=== PATIENT | male | born 1950 | race Two or more races ===

== ENCOUNTER 2020-07-07 11:30 | Outpatient (CLI) | payer MEDICARE, OTHER | END 2020-07-07 23:59 | disposition home or self-care (01) | LOC: MSC 11:30 | PROVIDERS: ATTEND Internal Medicine | DX: E11.22 Type 2 diabetes mellitus with diabetic chronic kidney disease (principal); N18.9 Chronic kidney disease, unspecified; M45.9 Ankylosing spondylitis of unspecified sites in spine; Z98.1 Arthrodesis status; E78.5 Hyperlipidemia, unspecified; R53.1 Weakness; J40 Bronchitis, not specified as acute or chronic; Z86.010 Personal history of colon polyps ==

== ENCOUNTER 2020-07-26 10:15 | Outpatient (CLI) | payer OTHER ==
[2020-07-26 11:52] LABS: ALBUMIN 3.4 g/dL (3.4-5.0); BILIRUBIN,TOTAL 0.3 mg/dL (0.2-1.0); CALCIUM, SERUM 8.8 mg/dL (8.5-10.1); CREATININE 1.9 mg/dL (0.6-1.3); MAGNESIUM 1.7 mg/dL (1.8-2.4); PHOSPHORUS 3.6 mg/dL (2.5-4.9); POTASSIUM 4.7 mmol/L (3.5-5.1); TOTAL PROTEIN, SERUM 6.9 g/dL (6.4-8.2)
== END 2020-07-26 23:59 | disposition home or self-care (01) ==
LOC: MSC 10:15
PROVIDERS: ATTEND Internal Medicine
DX: K63.5 Polyp of colon (principal); J30.9 Allergic rhinitis, unspecified; E11.22 Type 2 diabetes mellitus with diabetic chronic kidney disease; N18.9 Chronic kidney disease, unspecified; Z79.4 Long term (current) use of insulin; Z79.84 Long term (current) use of oral hypoglycemic drugs; M45.9 Ankylosing spondylitis of unspecified sites in spine; Z98.1 Arthrodesis status; E78.5 Hyperlipidemia, unspecified; J40 Bronchitis, not specified as acute or chronic; M81.0 Age-related osteoporosis without current pathological fracture; Z79.899 Other long term (current) drug therapy; Z79.52 Long term (current) use of systemic steroids
CPT/HCPCS: 36415; 80053-TC; 83735-TC; 83970; 84100-TC

== ENCOUNTER 2020-09-27 10:30 | Outpatient (CLI) | payer OTHER | END 2020-09-27 23:59 | disposition home or self-care (01) | LOC: MSC 10:30 | PROVIDERS: ATTEND Internal Medicine | DX: I12.9 Hypertensive chronic kidney disease with stage 1 through stage 4 chronic kidney disease, or unspecified chronic kidney disease (principal); E11.22 Type 2 diabetes mellitus with diabetic chronic kidney disease; N18.9 Chronic kidney disease, unspecified; Z79.84 Long term (current) use of oral hypoglycemic drugs; J30.9 Allergic rhinitis, unspecified; M45.9 Ankylosing spondylitis of unspecified sites in spine; I25.10 Atherosclerotic heart disease of native coronary artery without angina pectoris; E78.5 Hyperlipidemia, unspecified; J40 Bronchitis, not specified as acute or chronic; M81.0 Age-related osteoporosis without current pathological fracture; Z98.890 Other specified postprocedural states; Z79.52 Long term (current) use of systemic steroids; Z79.899 Other long term (current) drug therapy ==

== ENCOUNTER 2020-11-08 11:22 | Outpatient (CLI) | payer OTHER | END 2020-11-08 23:59 | disposition home or self-care (01) | LOC: MSC 11:22 | PROVIDERS: ATTEND Internal Medicine | DX: S70.02XA Contusion of left hip, initial encounter (principal); W19.XXXA Unspecified fall, initial encounter; Y93.9 Activity, unspecified; E11.22 Type 2 diabetes mellitus with diabetic chronic kidney disease; I12.9 Hypertensive chronic kidney disease with stage 1 through stage 4 chronic kidney disease, or unspecified chronic kidney disease; N18.9 Chronic kidney disease, unspecified; Z79.84 Long term (current) use of oral hypoglycemic drugs; M45.9 Ankylosing spondylitis of unspecified sites in spine; I25.10 Atherosclerotic heart disease of native coronary artery without angina pectoris; E78.5 Hyperlipidemia, unspecified; J40 Bronchitis, not specified as acute or chronic; M81.0 Age-related osteoporosis without current pathological fracture; Z79.52 Long term (current) use of systemic steroids; Z79.899 Other long term (current) drug therapy | CPT/HCPCS: 73503; G0463; 73502 ==

== ENCOUNTER 2021-02-08 13:55 | Outpatient (CLI) | payer OTHER | END 2021-02-08 23:59 | disposition home health service (06) | LOC: WOU 13:55 | PROVIDERS: ATTEND Podiatrist Foot & Ankle Surgery | DX: E11.621 Type 2 diabetes mellitus with foot ulcer (principal); L97.512 Non-pressure chronic ulcer of other part of right foot with fat layer exposed; R60.0 Localized edema; I10 Essential (primary) hypertension; M10.9 Gout, unspecified | CPT/HCPCS: 11042 ==

== ENCOUNTER 2021-02-23 10:15 | Outpatient (CLI) | payer OTHER | END 2021-02-23 23:59 | disposition home or self-care (01) | LOC: MSC 10:15 | PROVIDERS: ATTEND Internal Medicine | DX: M25.675 Stiffness of left foot, not elsewhere classified (principal); E11.22 Type 2 diabetes mellitus with diabetic chronic kidney disease; I12.9 Hypertensive chronic kidney disease with stage 1 through stage 4 chronic kidney disease, or unspecified chronic kidney disease; N18.9 Chronic kidney disease, unspecified; Z79.4 Long term (current) use of insulin; M25.552 Pain in left hip; R58 Hemorrhage, not elsewhere classified; R60.0 Localized edema; J30.9 Allergic rhinitis, unspecified; I25.10 Atherosclerotic heart disease of native coronary artery without angina pectoris; E78.5 Hyperlipidemia, unspecified; J40 Bronchitis, not specified as acute or chronic; M81.0 Age-related osteoporosis without current pathological fracture; M45.9 Ankylosing spondylitis of unspecified sites in spine; S91.301D Unspecified open wound, right foot, subsequent encounter; Z79.82 Long term (current) use of aspirin; Z79.52 Long term (current) use of systemic steroids; Z79.899 Other long term (current) drug therapy ==

== ENCOUNTER 2021-02-24 10:46 | Outpatient (CLI) | payer OTHER | END 2021-02-24 23:59 | disposition home health service (06) | LOC: WOU 10:46 | PROVIDERS: ATTEND Podiatrist Foot & Ankle Surgery | DX: E11.621 Type 2 diabetes mellitus with foot ulcer (principal); L97.518 Non-pressure chronic ulcer of other part of right foot with other specified severity; Z79.4 Long term (current) use of insulin | CPT/HCPCS: 11042 ==

== ENCOUNTER 2021-03-14 11:00 | Outpatient (CLI) | payer OTHER | END 2021-03-14 23:59 | disposition home or self-care (01) | LOC: MSC 11:00 | PROVIDERS: ATTEND Internal Medicine | DX: E11.40 Type 2 diabetes mellitus with diabetic neuropathy, unspecified (principal); Z79.84 Long term (current) use of oral hypoglycemic drugs; M25.675 Stiffness of left foot, not elsewhere classified; S91.301D Unspecified open wound, right foot, subsequent encounter; M25.552 Pain in left hip; S70.02XD Contusion of left hip, subsequent encounter; R60.0 Localized edema; M45.9 Ankylosing spondylitis of unspecified sites in spine; E11.22 Type 2 diabetes mellitus with diabetic chronic kidney disease; I12.9 Hypertensive chronic kidney disease with stage 1 through stage 4 chronic kidney disease, or unspecified chronic kidney disease; N18.9 Chronic kidney disease, unspecified; J30.9 Allergic rhinitis, unspecified; I25.10 Atherosclerotic heart disease of native coronary artery without angina pectoris; E78.5 Hyperlipidemia, unspecified; J40 Bronchitis, not specified as acute or chronic; M81.0 Age-related osteoporosis without current pathological fracture; Z79.52 Long term (current) use of systemic steroids; Z79.82 Long term (current) use of aspirin; Z79.899 Other long term (current) drug therapy ==

== ENCOUNTER 2021-05-23 09:57 | Outpatient (CLI) | payer OTHER | END 2021-05-23 23:59 | disposition home or self-care (01) | LOC: MSC 09:57 | PROVIDERS: ATTEND Internal Medicine | DX: L98.419 Non-pressure chronic ulcer of buttock with unspecified severity (principal); K21.9 Gastro-esophageal reflux disease without esophagitis; S80.11XD Contusion of right lower leg, subsequent encounter; S91.301D Unspecified open wound, right foot, subsequent encounter; E11.40 Type 2 diabetes mellitus with diabetic neuropathy, unspecified; Z79.4 Long term (current) use of insulin; E11.22 Type 2 diabetes mellitus with diabetic chronic kidney disease; I12.9 Hypertensive chronic kidney disease with stage 1 through stage 4 chronic kidney disease, or unspecified chronic kidney disease; N18.9 Chronic kidney disease, unspecified; M45.9 Ankylosing spondylitis of unspecified sites in spine; J30.9 Allergic rhinitis, unspecified; I25.10 Atherosclerotic heart disease of native coronary artery without angina pectoris; E78.5 Hyperlipidemia, unspecified; J40 Bronchitis, not specified as acute or chronic; M81.0 Age-related osteoporosis without current pathological fracture; Z79.52 Long term (current) use of systemic steroids; Z79.82 Long term (current) use of aspirin; Z79.899 Other long term (current) drug therapy ==

== ENCOUNTER 2021-06-20 10:27 | Outpatient (CLI) | payer OTHER ==
[2021-06-20 11:45] LABS: BASOPHILS % (AUTO) 0.5 % (0.0-2.0); EOSINOPHILS % (AUTO) 0.3 % (0.0-6.0); HEMATOCRIT 46 % (39-51); HEMOGLOBIN 15.1 g/dL (13.5-17.5); LYMPHOCYTES # (AUTO) 1.3 K/uL (0.8-4.8); LYMPHOCYTES % (AUTO) 20.2 % (20.0-44.0); MEAN CORPUSCULAR HGB CONC 33 g/dl (31.0-36.0); MEAN CORPUSCULAR VOLUME 94 fL (80-96); MONOCYTES # (AUTO) 0.4 K/uL (0.1-1.30); MONOCYTES % (AUTO) 6.9 % (2.0-12.0); NEUTROPHILS # (AUTO) 4.6 K/uL (1.8-8.9); NEUTROPHILS % (AUTO) 72.1 % (43.0-81.0); PLATELET COUNT (AUTO) 141 K/uL (150-450); RED BLOOD CELL COUNT(AUTO) 4.94 MIL/uL (4.5-6.0); WHITE BLOOD COUNT (AUTO) 6.4 K/uL (4.3-11.0)
[2021-06-20 13:56] LABS: C-REACTIVE PROTEIN < 0.2 mg/dL (0.0-0.9)
[2021-06-20 14:16] LABS: ALANINE AMINOTRANSFERASE 26 U/L (12-78); ALBUMIN 3.5 g/dL (3.4-5.0); ALKALINE PHOSPHATASE 24 U/L (46-116); ASPARTATE AMINOTRANSFERASE 21 U/L (15-37); BILIRUBIN,TOTAL 0.5 mg/dL (0.2-1.0); CARBON DIOXIDE 24 mmol/L (21-32); CHLORIDE 105 mmol/L (98-107); CREATININE 1.6 mg/dL (0.6-1.3); GLUCOSE 143 mg/dL (74-106); PHOSPHORUS 4.4 mg/dL (2.5-4.9); POTASSIUM 4.7 mmol/L (3.5-5.1); SODIUM SERUM 141 mmol/L (136-145); TOTAL PROTEIN, SERUM 6.8 g/dL (6.4-8.2); UREA NITROGEN, BLOOD 24 mg/dL (7-18)
== END 2021-06-20 23:59 | disposition home or self-care (01) ==
LOC: MSC 10:27
PROVIDERS: ATTEND Internal Medicine
DX: L03.116 Cellulitis of left lower limb (principal); L89.309 Pressure ulcer of unspecified buttock, unspecified stage; K21.9 Gastro-esophageal reflux disease without esophagitis; S80.11XA Contusion of right lower leg, initial encounter; E11.22 Type 2 diabetes mellitus with diabetic chronic kidney disease; I12.9 Hypertensive chronic kidney disease with stage 1 through stage 4 chronic kidney disease, or unspecified chronic kidney disease; N18.9 Chronic kidney disease, unspecified; Z79.4 Long term (current) use of insulin; E11.40 Type 2 diabetes mellitus with diabetic neuropathy, unspecified; M25.552 Pain in left hip; M45.9 Ankylosing spondylitis of unspecified sites in spine; J30.9 Allergic rhinitis, unspecified; I25.10 Atherosclerotic heart disease of native coronary artery without angina pectoris; E78.5 Hyperlipidemia, unspecified; M81.0 Age-related osteoporosis without current pathological fracture; Z79.52 Long term (current) use of systemic steroids; Z79.82 Long term (current) use of aspirin; Z79.899 Other long term (current) drug therapy
CPT/HCPCS: 36415; 80053; 83735; 84100; 85025; 85652; 86140; G0463

== ENCOUNTER 2021-06-22 10:15 | Outpatient (CLI) | payer OTHER | END 2021-06-22 23:59 | disposition home or self-care (01) | LOC: MSC 10:15 | PROVIDERS: ATTEND Internal Medicine | DX: R19.7 Diarrhea, unspecified (principal); L03.116 Cellulitis of left lower limb; L89.309 Pressure ulcer of unspecified buttock, unspecified stage; K21.9 Gastro-esophageal reflux disease without esophagitis; S80.11XD Contusion of right lower leg, subsequent encounter; E11.40 Type 2 diabetes mellitus with diabetic neuropathy, unspecified; M25.552 Pain in left hip; M45.9 Ankylosing spondylitis of unspecified sites in spine; J30.9 Allergic rhinitis, unspecified; E11.22 Type 2 diabetes mellitus with diabetic chronic kidney disease; I12.9 Hypertensive chronic kidney disease with stage 1 through stage 4 chronic kidney disease, or unspecified chronic kidney disease; N18.9 Chronic kidney disease, unspecified; Z79.4 Long term (current) use of insulin; I25.10 Atherosclerotic heart disease of native coronary artery without angina pectoris; E78.5 Hyperlipidemia, unspecified; Z86.010 Personal history of colon polyps; M81.0 Age-related osteoporosis without current pathological fracture; Z79.52 Long term (current) use of systemic steroids; Z79.82 Long term (current) use of aspirin; Z79.899 Other long term (current) drug therapy ==

== ENCOUNTER 2021-06-27 10:30 | Outpatient (CLI) | payer MEDICARE, OTHER | END 2021-06-27 23:59 | disposition home or self-care (01) | LOC: MSC 10:30 | PROVIDERS: ATTEND Internal Medicine | DX: L03.116 Cellulitis of left lower limb (principal); L89.309 Pressure ulcer of unspecified buttock, unspecified stage; R19.7 Diarrhea, unspecified; K21.9 Gastro-esophageal reflux disease without esophagitis; S80.11XD Contusion of right lower leg, subsequent encounter; E11.40 Type 2 diabetes mellitus with diabetic neuropathy, unspecified; M25.552 Pain in left hip; M45.9 Ankylosing spondylitis of unspecified sites in spine; J30.9 Allergic rhinitis, unspecified; E11.22 Type 2 diabetes mellitus with diabetic chronic kidney disease; I12.9 Hypertensive chronic kidney disease with stage 1 through stage 4 chronic kidney disease, or unspecified chronic kidney disease; N18.9 Chronic kidney disease, unspecified; Z79.4 Long term (current) use of insulin; E78.5 Hyperlipidemia, unspecified; Z86.010 Personal history of colon polyps; M81.0 Age-related osteoporosis without current pathological fracture; Z79.52 Long term (current) use of systemic steroids; Z79.82 Long term (current) use of aspirin; Z79.899 Other long term (current) drug therapy; Z79.2 Long term (current) use of antibiotics ==

== ENCOUNTER 2021-06-29 08:59 | Outpatient (CLI) | payer MEDICARE, OTHER | END 2021-06-29 23:59 | disposition home or self-care (01) | LOC: MSC 08:59 | PROVIDERS: ATTEND Internal Medicine | DX: L03.116 Cellulitis of left lower limb (principal); R19.7 Diarrhea, unspecified; L89.309 Pressure ulcer of unspecified buttock, unspecified stage; K21.9 Gastro-esophageal reflux disease without esophagitis; S80.11XD Contusion of right lower leg, subsequent encounter; E11.40 Type 2 diabetes mellitus with diabetic neuropathy, unspecified; M25.552 Pain in left hip; E11.22 Type 2 diabetes mellitus with diabetic chronic kidney disease; I12.9 Hypertensive chronic kidney disease with stage 1 through stage 4 chronic kidney disease, or unspecified chronic kidney disease; N18.9 Chronic kidney disease, unspecified; Z79.4 Long term (current) use of insulin; M45.9 Ankylosing spondylitis of unspecified sites in spine; J30.9 Allergic rhinitis, unspecified; E78.5 Hyperlipidemia, unspecified; Z86.010 Personal history of colon polyps; I25.10 Atherosclerotic heart disease of native coronary artery without angina pectoris; Z79.82 Long term (current) use of aspirin; M81.0 Age-related osteoporosis without current pathological fracture; Z79.52 Long term (current) use of systemic steroids; Z79.2 Long term (current) use of antibiotics; Z79.899 Other long term (current) drug therapy ==

== ENCOUNTER 2021-06-29 09:40 | Outpatient (CLI) | payer MEDICARE, OTHER ==
[2021-06-29] MEDS ORDERED: SILVER SULFADIAZINE CREAM 25 GM TUBE ONE (10:02)
== END 2021-06-29 23:59 | disposition home or self-care (01) ==
LOC: WOU 09:40
PROVIDERS: ATTEND Podiatrist Foot & Ankle Surgery
DX: L03.116 Cellulitis of left lower limb (principal); L85.3 Xerosis cutis
CPT/HCPCS: G0463

== ENCOUNTER 2021-10-10 09:41 | Outpatient (CLI) | payer OTHER | END 2021-10-10 23:59 | disposition home or self-care (01) | LOC: MSC 09:41 | PROVIDERS: ATTEND Internal Medicine | DX: F32.A Depression, unspecified (principal); L89.309 Pressure ulcer of unspecified buttock, unspecified stage; Z79.2 Long term (current) use of antibiotics; K21.9 Gastro-esophageal reflux disease without esophagitis; S80.11XD Contusion of right lower leg, subsequent encounter; M25.552 Pain in left hip; I12.9 Hypertensive chronic kidney disease with stage 1 through stage 4 chronic kidney disease, or unspecified chronic kidney disease; E11.22 Type 2 diabetes mellitus with diabetic chronic kidney disease; N18.9 Chronic kidney disease, unspecified; Z79.84 Long term (current) use of oral hypoglycemic drugs; Z79.4 Long term (current) use of insulin; Z79.52 Long term (current) use of systemic steroids; Z79.82 Long term (current) use of aspirin; E11.40 Type 2 diabetes mellitus with diabetic neuropathy, unspecified; M45.9 Ankylosing spondylitis of unspecified sites in spine; J30.9 Allergic rhinitis, unspecified; E78.5 Hyperlipidemia, unspecified; Z86.010 Personal history of colon polyps; I25.10 Atherosclerotic heart disease of native coronary artery without angina pectoris; M81.0 Age-related osteoporosis without current pathological fracture; M25.559 Pain in unspecified hip; Z91.81 History of falling; Z79.899 Other long term (current) drug therapy ==

== ENCOUNTER 2021-11-14 10:37 | Outpatient (CLI) | payer OTHER ==
[2021-11-14 11:49] LABS: BASOPHILS % (AUTO) 0.1 % (0.0-2.0); EOSINOPHILS % (AUTO) 0.2 % (0.0-6.0); HEMATOCRIT 46 % (39-51); HEMOGLOBIN 15.2 g/dL (13.5-17.5); LYMPHOCYTES # (AUTO) 1.3 K/uL (0.8-4.8); LYMPHOCYTES % (AUTO) 12.6 % (20.0-44.0); MEAN CORPUSCULAR HGB CONC 33 g/dl (31.0-36.0); MEAN CORPUSCULAR VOLUME 96 fL (80-96); MONOCYTES # (AUTO) 0.6 K/uL (0.1-1.30); MONOCYTES % (AUTO) 5.7 % (2.0-12.0); NEUTROPHILS # (AUTO) 8.1 K/uL (1.8-8.9); NEUTROPHILS % (AUTO) 81.4 % (43.0-81.0); PLATELET COUNT (AUTO) 162 K/uL (150-450); RED BLOOD CELL COUNT(AUTO) 4.84 MIL/uL (4.5-6.0)
[2021-11-14 13:08] LABS: CHOLESTEROL 129 mg/dL (<200); FREE T4 (FREE THYROXINE) 1.19 ng/dL (0.76-1.46); HDL CHOLESTEROL 39 mg/dL (40-60); LDL 60 mg/dL (0-99); PROSTATE SPECIFIC ANTIGEN SCR 0.77 ng/mL (0.00-4.00); TRIGLYCERIDES 302 mg/dL (30-150)
[2021-11-14 13:20] LABS: ALANINE AMINOTRANSFERASE 22 U/L (12-78); ALBUMIN 3.3 g/dL (3.4-5.0); ALKALINE PHOSPHATASE 26 U/L (46-116); ASPARTATE AMINOTRANSFERASE 15 U/L (15-37); BILIRUBIN,TOTAL 0.6 mg/dL (0.2-1.0); CARBON DIOXIDE 29 mmol/L (21-32); CHLORIDE 102 mmol/L (98-107); CREATININE 1.7 mg/dL (0.6-1.3); GLUCOSE 127 mg/dL (74-106); MAGNESIUM 1.9 mg/dL (1.8-2.4); PHOSPHORUS 3.8 mg/dL (2.5-4.9); POTASSIUM 4.6 mmol/L (3.5-5.1); SODIUM SERUM 139 mmol/L (136-145); TOTAL PROTEIN, SERUM 6.8 g/dL (6.4-8.2); UREA NITROGEN, BLOOD 27 mg/dL (7-18)
[2021-11-14 14:09] LABS: C-REACTIVE PROTEIN < 0.2 mg/dL (0.0-0.9)
== END 2021-11-14 23:59 | disposition home or self-care (01) ==
LOC: MSC 10:37
PROVIDERS: ATTEND Internal Medicine
DX: R19.7 Diarrhea, unspecified (principal); M53.86 Other specified dorsopathies, lumbar region; F32.A Depression, unspecified; S31.809D Unspecified open wound of unspecified buttock, subsequent encounter; Z79.2 Long term (current) use of antibiotics; K21.9 Gastro-esophageal reflux disease without esophagitis; S80.11XD Contusion of right lower leg, subsequent encounter; M25.552 Pain in left hip; Z91.81 History of falling; I12.9 Hypertensive chronic kidney disease with stage 1 through stage 4 chronic kidney disease, or unspecified chronic kidney disease; E11.22 Type 2 diabetes mellitus with diabetic chronic kidney disease; N18.9 Chronic kidney disease, unspecified; Z79.4 Long term (current) use of insulin; Z79.84 Long term (current) use of oral hypoglycemic drugs; Z79.52 Long term (current) use of systemic steroids; E11.40 Type 2 diabetes mellitus with diabetic neuropathy, unspecified; M45.9 Ankylosing spondylitis of unspecified sites in spine; J30.9 Allergic rhinitis, unspecified; E78.5 Hyperlipidemia, unspecified; Z86.010 Personal history of colon polyps; I25.10 Atherosclerotic heart disease of native coronary artery without angina pectoris; Z79.82 Long term (current) use of aspirin; M81.0 Age-related osteoporosis without current pathological fracture; Z79.899 Other long term (current) drug therapy
CPT/HCPCS: 36415; 80053-TC; 80061-TC; 82306; 82607-TC; 83735-TC; 84100-TC; 84153-TC; 84439-TC; 84443-TC; 85025-TC; 85652-TC; 86140-TC

== ENCOUNTER 2022-01-23 09:20 | Outpatient (CLI) | payer OTHER ==
[2022-01-23 11:09] LABS: BILIRUBIN,URINE NEGATIVE (NEGATIVE); COLOR,URINE YELLOW (YELLOW); LEUKOCYTE ESTERASE ,URINE NEGATIVE (NEGATIVE); NITRITE, URINE NEGATIVE (NEGATIVE); PH,URINE 5.5 (5.0-8.0); PROTEIN,URINE TRACE mg/dl (NEGATIVE); UGLUCOSE NEGATIVE (NEGATIVE); UROBILINOGEN,URINE 0.2 EU/dL (0.2)
[2022-01-23 11:26] LABS: URINE TOTAL PROTEIN 36.1 mg/dL (0-11.9)
[2022-01-23 11:32] LABS: RBC,URINE 0-2 /HPF (0-2)
[2022-01-23 11:33] LABS: BACTERIA,URINE None seen /HPF (None Seen); SQUAMOUS EPITHELIAL CELL,UR 0-2 /HPF (None Seen); WBC,URINE 0-2 /HPF (0-3)
[2022-01-23 11:37] LABS: BASOPHILS % (AUTO) 0.2 % (0.0-2.0); EOSINOPHILS % (AUTO) 0.6 % (0.0-6.0); HEMATOCRIT 47 % (39-51); HEMOGLOBIN 15.5 g/dL (13.5-17.5); LYMPHOCYTES # (AUTO) 1.3 K/uL (0.8-4.8); MEAN CORPUSCULAR HGB CONC 33 g/dl (31.0-36.0); MEAN CORPUSCULAR VOLUME 94 fL (80-96); MONOCYTES # (AUTO) 0.6 K/uL (0.1-1.30); NEUTROPHILS # (AUTO) 6.5 K/uL (1.8-8.9); NEUTROPHILS % (AUTO) 77.2 % (43.0-81.0); PLATELET COUNT (AUTO) 147 K/uL (150-450); RED BLOOD CELL COUNT(AUTO) 5.02 MIL/uL (4.5-6.0); WHITE BLOOD COUNT (AUTO) 8.4 K/uL (4.3-11.0)
[2022-01-23 11:40] LABS: FREE T4 (FREE THYROXINE) 1.19 ng/dL (0.76-1.46); PREALBUMIN 29.9 MG/DL (18.0-35.7); THYROID STIMULATING HORMONE 1.274 uIU/mL (0.358-3.74)
[2022-01-23 11:57] LABS: ALANINE AMINOTRANSFERASE 16 U/L (12-78); ALBUMIN 3.3 g/dL (3.4-5.0); ALKALINE PHOSPHATASE 28 U/L (46-116); ASPARTATE AMINOTRANSFERASE 15 U/L (15-37); BILIRUBIN,TOTAL 0.6 mg/dL (0.2-1.0); CALCIUM, SERUM 8.9 mg/dL (8.5-10.1); CARBON DIOXIDE 28 mmol/L (21-32); CHLORIDE 104 mmol/L (98-107); CREATININE 1.8 mg/dL (0.6-1.3); GLUCOSE 137 mg/dL (74-106); PHOSPHORUS 3.5 mg/dL (2.5-4.9); POTASSIUM 4.6 mmol/L (3.5-5.1); SODIUM SERUM 140 mmol/L (136-145); TOTAL PROTEIN, SERUM 6.8 g/dL (6.4-8.2); UREA NITROGEN, BLOOD 26 mg/dL (7-18)
== END 2022-01-23 23:59 | disposition home or self-care (01) ==
LOC: MSC 09:20
PROVIDERS: ATTEND Internal Medicine
DX: R63.4 Abnormal weight loss (principal); Z68.36 Body mass index [BMI] 36.0-36.9, adult; N39.0 Urinary tract infection, site not specified; E11.22 Type 2 diabetes mellitus with diabetic chronic kidney disease; I12.9 Hypertensive chronic kidney disease with stage 1 through stage 4 chronic kidney disease, or unspecified chronic kidney disease; N18.9 Chronic kidney disease, unspecified; I25.10 Atherosclerotic heart disease of native coronary artery without angina pectoris; E78.1 Pure hyperglyceridemia; F32.A Depression, unspecified; R19.7 Diarrhea, unspecified; S31.809D Unspecified open wound of unspecified buttock, subsequent encounter; Z79.2 Long term (current) use of antibiotics; K21.9 Gastro-esophageal reflux disease without esophagitis; S80.11XD Contusion of right lower leg, subsequent encounter; E11.40 Type 2 diabetes mellitus with diabetic neuropathy, unspecified; M25.552 Pain in left hip; Z91.81 History of falling; M45.9 Ankylosing spondylitis of unspecified sites in spine; J30.9 Allergic rhinitis, unspecified; Z86.010 Personal history of colon polyps; M81.0 Age-related osteoporosis without current pathological fracture; Z79.899 Other long term (current) drug therapy
CPT/HCPCS: 36415; 80053-TC; 81001; 82306; 82607-TC; 83735-TC; 83970; 84100-TC; 84134-TC; 84155-TC; 84439-TC; 84443-TC; 85025-TC; 85652-TC; 87086-TC

== ENCOUNTER 2022-02-01 11:15 | Outpatient (CLI) | payer OTHER | END 2022-02-01 23:59 | disposition home or self-care (01) | LOC: MSC 11:15 | PROVIDERS: ATTEND Internal Medicine | DX: R10.30 Lower abdominal pain, unspecified (principal); R63.4 Abnormal weight loss; N39.0 Urinary tract infection, site not specified; E11.22 Type 2 diabetes mellitus with diabetic chronic kidney disease; I12.9 Hypertensive chronic kidney disease with stage 1 through stage 4 chronic kidney disease, or unspecified chronic kidney disease; N18.9 Chronic kidney disease, unspecified; I25.10 Atherosclerotic heart disease of native coronary artery without angina pectoris; E11.40 Type 2 diabetes mellitus with diabetic neuropathy, unspecified; E78.1 Pure hyperglyceridemia; F32.A Depression, unspecified; R19.7 Diarrhea, unspecified; S31.809D Unspecified open wound of unspecified buttock, subsequent encounter; Z79.2 Long term (current) use of antibiotics; K21.9 Gastro-esophageal reflux disease without esophagitis; S80.11XD Contusion of right lower leg, subsequent encounter; M25.552 Pain in left hip; Z91.81 History of falling; M45.9 Ankylosing spondylitis of unspecified sites in spine; J30.9 Allergic rhinitis, unspecified; Z86.010 Personal history of colon polyps; M81.0 Age-related osteoporosis without current pathological fracture; Z79.899 Other long term (current) drug therapy ==

== ENCOUNTER 2022-02-27 10:57 | Outpatient (CLI) | payer OTHER | END 2022-02-27 23:59 | disposition home or self-care (01) | LOC: MSC 10:57 | PROVIDERS: ATTEND Internal Medicine | DX: R10.32 Left lower quadrant pain (principal); R63.4 Abnormal weight loss; Z68.36 Body mass index [BMI] 36.0-36.9, adult; N39.0 Urinary tract infection, site not specified; E11.22 Type 2 diabetes mellitus with diabetic chronic kidney disease; I12.9 Hypertensive chronic kidney disease with stage 1 through stage 4 chronic kidney disease, or unspecified chronic kidney disease; N18.9 Chronic kidney disease, unspecified; I25.10 Atherosclerotic heart disease of native coronary artery without angina pectoris; E11.40 Type 2 diabetes mellitus with diabetic neuropathy, unspecified; E78.1 Pure hyperglyceridemia; F32.A Depression, unspecified; R19.7 Diarrhea, unspecified; S31.809D Unspecified open wound of unspecified buttock, subsequent encounter; Z79.2 Long term (current) use of antibiotics; K21.9 Gastro-esophageal reflux disease without esophagitis; S80.11XD Contusion of right lower leg, subsequent encounter; M25.552 Pain in left hip; Z91.81 History of falling; M45.9 Ankylosing spondylitis of unspecified sites in spine; J30.9 Allergic rhinitis, unspecified; Z86.010 Personal history of colon polyps; M81.0 Age-related osteoporosis without current pathological fracture; Z79.899 Other long term (current) drug therapy ==

== ENCOUNTER 2022-10-11 15:00 | Outpatient (CLI) | payer OTHER | END 2022-10-11 23:59 | disposition home or self-care (01) | LOC: MSC 15:00 | PROVIDERS: ATTEND Internal Medicine | DX: M45.6 Ankylosing spondylitis lumbar region (principal); M43.26 Fusion of spine, lumbar region; Z79.52 Long term (current) use of systemic steroids; R19.7 Diarrhea, unspecified; Z87.440 Personal history of urinary (tract) infections; E11.22 Type 2 diabetes mellitus with diabetic chronic kidney disease; I12.9 Hypertensive chronic kidney disease with stage 1 through stage 4 chronic kidney disease, or unspecified chronic kidney disease; N18.9 Chronic kidney disease, unspecified; I25.10 Atherosclerotic heart disease of native coronary artery without angina pectoris; E11.40 Type 2 diabetes mellitus with diabetic neuropathy, unspecified; E78.1 Pure hyperglyceridemia; F32.A Depression, unspecified; S31.809D Unspecified open wound of unspecified buttock, subsequent encounter; Z79.2 Long term (current) use of antibiotics; K21.9 Gastro-esophageal reflux disease without esophagitis; S80.11XD Contusion of right lower leg, subsequent encounter; M25.552 Pain in left hip; Z91.81 History of falling; J30.9 Allergic rhinitis, unspecified; Z86.010 Personal history of colon polyps; M81.0 Age-related osteoporosis without current pathological fracture; Z79.899 Other long term (current) drug therapy ==

== ENCOUNTER 2023-03-05 08:57 | Outpatient (CLI) | payer OTHER | END 2023-03-05 23:59 | disposition home or self-care (01) | LOC: MSC 08:57 | PROVIDERS: ATTEND Internal Medicine | DX: R19.7 Diarrhea, unspecified (principal); E11.22 Type 2 diabetes mellitus with diabetic chronic kidney disease; I12.9 Hypertensive chronic kidney disease with stage 1 through stage 4 chronic kidney disease, or unspecified chronic kidney disease; N18.9 Chronic kidney disease, unspecified; Z79.52 Long term (current) use of systemic steroids; E11.40 Type 2 diabetes mellitus with diabetic neuropathy, unspecified; I25.10 Atherosclerotic heart disease of native coronary artery without angina pectoris; M45.6 Ankylosing spondylitis lumbar region; M43.26 Fusion of spine, lumbar region; E78.1 Pure hyperglyceridemia; F32.A Depression, unspecified; K21.9 Gastro-esophageal reflux disease without esophagitis; J30.9 Allergic rhinitis, unspecified; M81.0 Age-related osteoporosis without current pathological fracture ==